=== PATIENT | male | born 1945 | race Caucasian/White ===

== ENCOUNTER 2017-07-19 22:43 | Emergency (ER) | payer MEDICARE ==
[~2017-07-19] VITALS: Ht 175.3 cm; Wt 126.7 kg
[~2017-07-19 22:43] MED LIST: AMIT50TA3 PO; ASPI-1265 PO; ATOR10TA70 PO; CANA300T PO; CARV-50 PO; CLON0.2T PO; FLUT16SP2 NS; GLIM4TAB79 PO; LORA10TA7 PO; LOSA1TAB39 PO; METF500T PO; MULT-1074 PO; OMEG1CAP13 PO; POTA10TA19 PO; UBID200C18 PO; ZOLP10TA5 PO
[2017-07-19 22:53] VITALS: BP 155/85
[2017-07-19] MEDS ORDERED: HYDROcodone/acetaminophen 10/325mg tab PO ONE (23:40)
[2017-07-19] MEDS ORDERED: HYDR-3965 PO (23:48)
[2017-07-19] MEDS ORDERED: IBUP-1984 PO (23:48)
== END 2017-07-19 23:56 | disposition home or self-care (01) ==
LOC: ER 22:44
DX: M25.571 Pain in right ankle and joints of right foot (principal); I10 Essential (primary) hypertension; E11.9 Type 2 diabetes mellitus without complications; Z90.49 Acquired absence of other specified parts of digestive tract; Z98.890 Other specified postprocedural states; Z79.82 Long term (current) use of aspirin; Z79.84 Long term (current) use of oral hypoglycemic drugs
CPT/HCPCS: 73610; 99284

== ENCOUNTER 2017-07-26 13:58 | Emergency (ER) | payer MEDICARE ==
[~2017-07-26] VITALS: Ht 177.8 cm; Wt 129.0 kg
[~2017-07-26 13:58] MED LIST changes: +HYDR-3965 PO; +IBUP-1984 PO
[2017-07-26 14:41] VITALS: BP 148/92
[2017-07-26] MEDS ORDERED: HYDR-3965 PO (16:41)
[2017-07-26] MEDS ORDERED: BUPIVAcaine/PF 2.5 mg/ml (0.25%) 30ml vial IJ ONE (17:00)
== END 2017-07-26 18:38 | disposition home or self-care (01) ==
LOC: ER 13:59
DX: S92.425A Nondisplaced fracture of distal phalanx of left great toe, initial encounter for closed fracture (principal); I10 Essential (primary) hypertension; E11.9 Type 2 diabetes mellitus without complications; Z88.2 Allergy status to sulfonamides; Z79.82 Long term (current) use of aspirin; Z79.899 Other long term (current) drug therapy; Z79.84 Long term (current) use of oral hypoglycemic drugs; Z90.49 Acquired absence of other specified parts of digestive tract; W22.8XXA Striking against or struck by other objects, initial encounter; Y93.89 Activity, other specified; Y92.89 Other specified places as the place of occurrence of the external cause; Y99.8 Other external cause status
CPT/HCPCS: 11740; 73660; 99284; J3490

== ENCOUNTER 2017-08-04 09:41 | Outpatient (CLI) | payer MEDICARE | END 2017-08-04 10:46 | disposition home or self-care (01) | LOC: ORTHO 09:41 | PROVIDERS: ATTEND Nurse Practitioner Family | DX: S92.425A Nondisplaced fracture of distal phalanx of left great toe, initial encounter for closed fracture (principal); Z88.2 Allergy status to sulfonamides; X58.XXXA Exposure to other specified factors, initial encounter; Y93.89 Activity, other specified; Y92.89 Other specified places as the place of occurrence of the external cause; Y99.8 Other external cause status | CPT/HCPCS: A6449 ==

== ENCOUNTER 2017-08-25 09:51 | Outpatient (CLI) | payer MEDICARE ==
[~2017-08-25 09:51] MED LIST changes: -IBUP-1984 PO
[2017-08-25 09:56] VITALS: BP 135/72
== END 2017-08-25 10:49 | disposition home or self-care (01) ==
LOC: ORTHO 09:51
PROVIDERS: ATTEND Nurse Practitioner Family
DX: S92.425D Nondisplaced fracture of distal phalanx of left great toe, subsequent encounter for fracture with routine healing (principal); E11.9 Type 2 diabetes mellitus without complications; I10 Essential (primary) hypertension; Z88.2 Allergy status to sulfonamides; X58.XXXD Exposure to other specified factors, subsequent encounter
CPT/HCPCS: 73660; 99213

== ENCOUNTER 2017-09-15 10:03 | Outpatient (CLI) | payer MEDICARE ==
[~2017-09-15 10:03] MED LIST changes: -HYDR-3965 PO
[2017-09-15 10:34] VITALS: BP 135/78
== END 2017-09-15 11:03 | disposition home or self-care (01) ==
LOC: ORTHO 10:03
PROVIDERS: ATTEND Nurse Practitioner Family
DX: S92.425D Nondisplaced fracture of distal phalanx of left great toe, subsequent encounter for fracture with routine healing (principal); I10 Essential (primary) hypertension; E11.9 Type 2 diabetes mellitus without complications; Z88.2 Allergy status to sulfonamides; X58.XXXD Exposure to other specified factors, subsequent encounter
CPT/HCPCS: 73660

== ENCOUNTER 2018-11-22 10:38 | Emergency (ER) | payer MEDICARE, BC ==
[~2018-11-22] VITALS: Ht 175.3 cm; Wt 136.9 kg
[~2018-11-22 10:38] MED LIST changes: +GLIM4TAB4 PO; -GLIM4TAB79 PO
[2018-11-22 11:18] LABS: CLARITY,URINE CLEAR (Clear); COLOR,URINE YELLOW (Yellow); GLUCOSE, URINE NEGATIVE (Neg); KETONES,URINE NEGATIVE (Neg); LEUKOCYTE ESTERASE ,URINE TRACE (Neg); NITRITES, URINE NEGATIVE (Neg); OCCULT BLOOD,URINE NEGATIVE (Neg); PH,URINE 6.5 (4.8-8.0); PROTEIN,URINE NEGATIVE (Neg); UROBILINOGEN,URINE 0.2 E.U/dL (0.2-1.0)
[2018-11-22 11:19] LABS: UA COLLECTION TYPE CLN CATCH MIDSTREAM
[2018-11-22 11:26] LABS: BACTERIA,URINE FEW /HPF (Neg); MUCUS STRANDS NONE SEEN /LPF (Neg); RBC,URINE NONE SEEN /HPF (0-2); SQUAMOUS EPITHELIAL CELL,UR FEW /LPF (FEW); WBC,URINE 0-4 /HPF (0-4)
[2018-11-22 12:39] LABS: BASOPHILS # (AUTO) 0.1 X10'3 (0-0.2); EOSINOPHILS # (AUTO) 0.2 X10'3 (0-0.9); EOSINOPHILS % (AUTO) 3.5 % (0-6); HEMOGLOBIN 12.3 g/dl (14.0-17.9); LYMPHOCYTES % (AUTO) 18.4 % (21-51); MEAN CORPUSCULAR HEMOGLOBIN 27.7 PG (27.0-31.0); MEAN CORPUSCULAR HGB CONC 32.2 g/dL (33.0-36.5); MEAN CORPUSCULAR VOLUME 86.1 FL (78-98); MEAN PLATELET VOLUME 8.9 FL (7.4-10.4); MONOCYTES # (AUTO) 0.5 X10'3 (0-0.9); MONOCYTES % (AUTO) 10.3 % (2-12); NEUTROPHILS # (AUTO) 3.5 X10'3 (1.8-7.7); NEUTROPHILS % (AUTO) 66.8 % (42-75); PLATELET COUNT 155 X10'3 (140-440); RED BLOOD COUNT 4.42 X10'6 (4.70-6.10); RED CELL DISTRIBUTION WIDTH 15.7 % (11.5-14.5); WHITE BLOOD COUNT 5.3 X10'3 (4.5-11.0)
[2018-11-22] MEDS ORDERED: furosemide 10 MG/1 ML 10ml inj IV ONE (12:55)
[2018-11-22 13:00] LABS: ALANINE AMINOTRANSFERASE 28 U/L (12-78); ALBUMIN 3.6 G/DL (3.4-5.0); ALKALINE PHOSPHATASE 70 IU/L (46-116); ANION GAP 6 (8-16); ASPARTATE AMINO TRANSFERASE 24 U/L (10-37); BILIRUBIN,TOTAL 0.8 MG/DL (0.1-1.0); BLOOD UREA NITROGEN 13 MG/DL (7-18); BUN/CREATININE RATIO 13.4 (5.4-32.0); CALCIUM 9.2 MG/DL (8.5-10.1); CHLORIDE 105 MMOL/L (99-107); CREATININE 0.97 MG/DL (0.60-1.10); GLUCOSE 144 MG/DL (70-104); POTASSIUM 4.2 MMOL/L (3.5-5.1); SODIUM 142 MMOL/L (135-145); TOTAL CARBON DIOXIDE 30.6 MMOL/L (24-32); TOTAL PROTEIN 7.1 G/DL (6.4-8.2); eGFR 76 ML/MIN
[2018-11-22] MEDS ORDERED: potassium chloride 10mEq CAPSULE.SA PO ONE (13:05)
[2018-11-22] MEDS ORDERED: potassium Cl 20 mEq SR tablet PO ONE (13:10)
[2018-11-22 13:44] VITALS: BP 124/62
== END 2018-11-22 13:46 | disposition home or self-care (01) ==
LOC: ER 10:39
DX: N50.89 Other specified disorders of the male genital organs (principal); R60.0 Localized edema; I48.91 Unspecified atrial fibrillation; I10 Essential (primary) hypertension; E11.9 Type 2 diabetes mellitus without complications; Z90.49 Acquired absence of other specified parts of digestive tract; Z98.890 Other specified postprocedural states; Z88.2 Allergy status to sulfonamides; Z79.82 Long term (current) use of aspirin; Z79.84 Long term (current) use of oral hypoglycemic drugs; Z79.899 Other long term (current) drug therapy
CPT/HCPCS: 36415; 80053; 81001; 83880; 85025; 87088; 93005; 96374; 99284; J1940

== ENCOUNTER 2019-02-09 17:57 | Inpatient (IN) | payer MEDICARE, BC ==
[~2019-02-09] VITALS: Ht 175.3 cm; Wt 135.5 kg
[2019-02-09] MEDS ORDERED: furosemide 10 MG/1 ML 10ml inj IV ONE (18:35)
--- NOTE | 2019-02-09 18:39 | NUR ---
lab called to report that they had run a troponin as it was sent for "cardiac" pt and the troponin is less than 0.04. An order was also placed for 1xtrop.
[2019-02-09 18:42] LABS: TROPONIN I < 0.04 NG/ML (0.0-0.05)
--- NOTE | 2019-02-09 18:44 | NUR ---
SPOKE WITH JORDANA REDDY REGARDING PT BLOOD PRESSURE BEING 106/50 BEFORE ADMINISTRATION OF LASIX. BARRY BELIEVES PT IS THIRD-SPACING AND WANTS THE FULL 60MG DOSE OF LASIX TO BE GIVEN TOGETHER AT ONE TIME.
[2019-02-09 18:51] LABS: BASOPHILS # (AUTO) 0.1 X10'3 (0-0.2); EOSINOPHILS # (AUTO) 0.2 X10'3 (0-0.9); EOSINOPHILS % (AUTO) 3.9 % (0-6); HEMATOCRIT 33.4 % (42.0-52.0); HEMOGLOBIN 11.1 g/dl (14.0-17.9); LYMPHOCYTES # (AUTO) 1.1 X10'3 (1.1-4.8); LYMPHOCYTES % (AUTO) 21.5 % (21-51); MEAN CORPUSCULAR HEMOGLOBIN 28.6 PG (27.0-31.0); MEAN CORPUSCULAR HGB CONC 33.1 g/dL (33.0-36.5); MEAN CORPUSCULAR VOLUME 86.3 FL (78-98); MEAN PLATELET VOLUME 8.7 FL (7.4-10.4); MONOCYTES # (AUTO) 0.6 X10'3 (0-0.9); MONOCYTES % (AUTO) 11.7 % (2-12); NEUTROPHILS # (AUTO) 3.3 X10'3 (1.8-7.7); NEUTROPHILS % (AUTO) 61.9 % (42-75); PLATELET COUNT 172 X10'3 (140-440); RED BLOOD COUNT 3.87 X10'6 (4.70-6.10); RED CELL DISTRIBUTION WIDTH 16.7 % (11.5-14.5); WHITE BLOOD COUNT 5.3 X10'3 (4.5-11.0)
[2019-02-09 18:59] LABS: ALANINE AMINOTRANSFERASE 25 U/L (12-78); ALBUMIN 3.4 G/DL (3.4-5.0); ALBUMIN/GLOBULIN RATIO 0.9 (1.1-1.5); ALKALINE PHOSPHATASE 109 IU/L (46-116); ANION GAP 8 (8-16); ASPARTATE AMINO TRANSFERASE 32 U/L (10-37); BILIRUBIN,TOTAL 0.6 MG/DL (0.1-1.0); BLOOD UREA NITROGEN 19 MG/DL (7-18); BUN/CREATININE RATIO 17.4 (5.4-32.0); CALCIUM 8.7 MG/DL (8.5-10.1); CHLORIDE 103 MMOL/L (99-107); CREATININE 1.09 MG/DL (0.60-1.10); GLUCOSE 93 MG/DL (70-104); POTASSIUM 3.1 MMOL/L (3.5-5.1); SODIUM 142 MMOL/L (135-145); TOTAL CARBON DIOXIDE 31.3 MMOL/L (24-32); TOTAL PROTEIN 7.1 G/DL (6.4-8.2); eGFR 66 ML/MIN
--- NOTE | 2019-02-09 19:20 | NUR ---
INFORMED JORDANA REDDY OF K LEVEL3.1. NO NEW ORDERS AT THIS TIME.
[2019-02-09] MEDS ORDERED: potassium Cl 20 mEq SR tablet PO STA ×2 (19:34→23:12)
[2019-02-09] MEDS ORDERED: FURO-149 PO (19:46)
[2019-02-09] MEDS ORDERED: APIX5TAB3 PO (19:50)
[2019-02-09] MEDS ORDERED: GABA-532 PO (19:50)
[2019-02-09] MEDS ORDERED: MONT10TA24 PO (19:50)
[2019-02-09] MEDS ORDERED: acetaminophen 325mg tablet PO PRN (20:00)
[2019-02-09] MEDS ORDERED: morphine 2 MG/ML inj. syringe IV PRN ×2 (20:00)
[2019-02-09] MEDS ORDERED: magnesium hydroxide 30ml (MOM) UD suspension PO PRN (20:00)
[2019-02-09] MEDS ORDERED: mag hydrox/Alum hydrox/simeth 30ml oral suspension PO PRN (20:00)
[2019-02-09] MEDS ORDERED: ondansetron/PF 4mg/2ml inj IV PRN (20:00)
[2019-02-09] MEDS ORDERED: MESSAGE TO PHARMACY PO ONE (20:05)
[2019-02-09] MEDS ORDERED: dextrose 50%-water 50ml dispensing syringe IV PRN ×2 (20:05)
[2019-02-09] MEDS ORDERED: insulin Lispro (HumaLOG) vial - multi-dose SQ SCH (20:05)
[2019-02-09] MEDS ORDERED: glucagon, human recombinant 1mg kit SUBCUT PRN (20:05)
[2019-02-09] MEDS ORDERED: dextrose ORAL solution 15 GM/59 ML bottle PO PRN ×2 (20:05)
[2019-02-09 20:25] LABS: HEMOGLOBIN A1C 7.8 % (4.5-6.2)
[2019-02-09] MEDS: insulin glargine (Lantus) pen - multi-dose SQ SCH (21:00)
--- NOTE | 2019-02-09 21:06 | NUR ---
recieved pt report from Mayra RICHARDSON. ED. pt came in with chief complaint of continuing worse SOB, pt BNP is 4473, CHF, with bilat lower extremity and scrotal swelling. pt reports taking 60mg lasix BID previous to admit. will await pt arival to the unit
--- NOTE | 2019-02-09 21:58 | NUR ---
NOTIFIED PAGER ID: [phone] MESSAGE: Anup Aguila, [id number]- K was 3.1, no K replacement protocol ordered, pt received 60 mg Lasix and is about to get another 80mg per orders. can we front load with some extra K along with replacement? [facility] [id number]
[2019-02-09 22:00] VITALS: BP 128/60
[2019-02-09] MEDS: apixaban 5mg tablet PO SCH (22:27)
[2019-02-09] MEDS: gabapentin 300mg capsule PO SCH (22:27)
[2019-02-09] MEDS: zolpidem 5mg tablet PO SCH (22:29)
[2019-02-09] MEDS: carVEDilol 12.5mg tablet PO SCH (22:29)
[2019-02-09] MEDS: furosemide 10 MG/1 ML 10ml inj IV SCH (22:35)
[2019-02-09] MEDS: cloNIDine 0.1 mg tablet PO SCH (22:37)
[2019-02-09 23:00] VITALS: BP 128/67
[2019-02-09] MEDS ORDERED: potassium CL 10mEq/100ml bag 100 ML IV PRN (23:15)
[2019-02-09] MEDS ORDERED: potassium Cl 20 mEq SR tablet PO PRN (23:15)
--- NOTE | 2019-02-10 00:47 | NUR ---
ED took BS just prior to transfer, per LUIS RICHARDSON hand off report Addendum: 02/10/19 at 0048 by Lexx Coto RN Amended: Links added.
[2019-02-10 03:00] VITALS: BP 121/66
[2019-02-10 06:06] LABS: BASOPHILS % (AUTO) 0.7 % (0-1); EOSINOPHILS # (AUTO) 0.2 X10'3 (0-0.9); EOSINOPHILS % (AUTO) 3.6 % (0-6); HEMATOCRIT 30.9 % (42.0-52.0); HEMOGLOBIN 10.2 g/dl (14.0-17.9); LYMPHOCYTES % (AUTO) 18.9 % (21-51); MEAN CORPUSCULAR HEMOGLOBIN 28.1 PG (27.0-31.0); MEAN CORPUSCULAR HGB CONC 33.2 g/dL (33.0-36.5); MEAN CORPUSCULAR VOLUME 84.8 FL (78-98); MEAN PLATELET VOLUME 8.5 FL (7.4-10.4); MONOCYTES # (AUTO) 0.6 X10'3 (0-0.9); MONOCYTES % (AUTO) 11.1 % (2-12); NEUTROPHILS # (AUTO) 3.4 X10'3 (1.8-7.7); NEUTROPHILS % (AUTO) 65.7 % (42-75); PLATELET COUNT 153 X10'3 (140-440); RED BLOOD COUNT 3.64 X10'6 (4.70-6.10); RED CELL DISTRIBUTION WIDTH 16.6 % (11.5-14.5); WHITE BLOOD COUNT 5.2 X10'3 (4.5-11.0)
--- NOTE | 2019-02-10 06:14 | NUR ---
Patient in room PCU 3013. I have received report from DEBRA Mcrae and had the opportunity to ask questions and assume patient care.
--- NOTE | 2019-02-10 06:34 | NUR ---
Problems reprioritized. Patient report given, questions answered & plan of care reviewed with Heena RICHARDSON.
[2019-02-10 06:42] LABS: ANION GAP 7 (8-16); BLOOD UREA NITROGEN 17 MG/DL (7-18); BUN/CREATININE RATIO 15.7 (5.4-32.0); CALCIUM 8.3 MG/DL (8.5-10.1); CHLORIDE 105 MMOL/L (99-107); CREATININE 1.08 MG/DL (0.60-1.10); GLUCOSE 140 MG/DL (70-104); MAGNESIUM 2.2 MG/DL (1.5-2.4); POTASSIUM 3.1 MMOL/L (3.5-5.1); SODIUM 142 MMOL/L (135-145); TOTAL CARBON DIOXIDE 30.3 MMOL/L (24-32); eGFR 67 ML/MIN
[2019-02-10] MEDS ORDERED: potassium chloride 10mEq ER tablet PO SCH (08:00)
[2019-02-10] MEDS: (Ubidecarenone (Co Q-10) 1 CAP) PO SCH (08:00)
[2019-02-10] MEDS ORDERED: atorvastatin 10mg tablet PO SCH (08:00)
[2019-02-10] MEDS: furosemide 10 MG/1 ML 10ml inj IV SCH ×2 (08:31→21:46)
[2019-02-10] MEDS: HYDROchlorothiazide 25mg tablet PO SCH (08:31)
[2019-02-10] MEDS: cloNIDine 0.1 mg tablet PO SCH ×2 (08:31→21:36)
[2019-02-10] MEDS: losartan 50mg tablet PO SCH (08:34)
[2019-02-10] MEDS: apixaban 5mg tablet PO SCH ×2 (08:34→21:36)
[2019-02-10] MEDS: montelukast 10mg tablet PO SCH (08:35)
[2019-02-10] MEDS: loratadine 10mg tablet PO SCH (08:35)
[2019-02-10] MEDS: gabapentin 300mg capsule PO SCH ×3 (08:35→21:36)
[2019-02-10] MEDS: carVEDilol 12.5mg tablet PO SCH ×2 (08:35→21:36)
[2019-02-10] MEDS: OMEGA-3/DHA/EPA/FISH OIL 1 EACH CAPSULE.DR PO SCH (09:15)
[2019-02-10] MEDS ORDERED: pneumococcal 23-VAL P-sac vacc 25 mcg/0.5ml vial IMVAC ONE (10:00)
[2019-02-10 11:00] VITALS: BP 106/62
[2019-02-10] MEDS ORDERED: atorvastatin 20mg tablet PO SCH (14:15)
[2019-02-10] MEDS ORDERED: potassium Cl 20 mEq SR tablet PO ONE (14:20)
[2019-02-10] MEDS ORDERED: FLUT1BLS13 PO (14:26)
[2019-02-10] MEDS ORDERED: AMLO10TA13 PO (14:26)
--- NOTE | 2019-02-10 14:55 | NUR ---
DM consult: Pt with A1c 7.8 seen at bedside with SO present. So reports she does the cooking and states patient has decreased his sugar intake to decrease A1c from greater than 8. Pt/SO with no questions at this time. Written DM ed with referral to outpatient DM class and RD contact information provided. Pt endorses a low appetite however documented with 100% PO intake on heart healthy CHO controlled diet. Pt denies food preferences, food allergies, difficulty chewing/swallowing, or constipation/diarrhea. Pt reports he takes an antidiarrheal QD and states LBM was last night. Will continue to follow. Addendum: 02/10/19 at [address] Amended: Links added.
[2019-02-10 15:00] VITALS: BP 105/58
--- NOTE | 2019-02-10 18:02 | NUR ---
Problems reprioritized. Patient report given, questions answered & plan of care reviewed with DEBRA Gold.
--- NOTE | 2019-02-10 18:08 | NUR ---
Patient in room PCU 3013. I have received report from Heena RICHARDSON and had the opportunity to ask questions and assume patient care.
[2019-02-10 19:03] VITALS: BP 136/73
[2019-02-10] MEDS: insulin glargine (Lantus) pen - multi-dose SQ SCH (21:00)
[2019-02-10 21:23] VITALS: BP 120/65
[2019-02-10] MEDS: potassium Cl 20 mEq SR tablet PO SCH (21:36)
[2019-02-10] MEDS: zolpidem 5mg tablet PO SCH (21:36)
[2019-02-11 02:00] VITALS: BP 123/61
[2019-02-11 05:18] LABS: BASOPHILS % (AUTO) 0.7 % (0-1); EOSINOPHILS # (AUTO) 0.2 X10'3 (0-0.9); EOSINOPHILS % (AUTO) 3.6 % (0-6); HEMATOCRIT 34.6 % (42.0-52.0); HEMOGLOBIN 11.6 g/dl (14.0-17.9); LYMPHOCYTES % (AUTO) 15.6 % (21-51); MEAN CORPUSCULAR HEMOGLOBIN 28.4 PG (27.0-31.0); MEAN CORPUSCULAR HGB CONC 33.3 g/dL (33.0-36.5); MEAN CORPUSCULAR VOLUME 85.2 FL (78-98); MEAN PLATELET VOLUME 8.6 FL (7.4-10.4); MONOCYTES # (AUTO) 0.7 X10'3 (0-0.9); MONOCYTES % (AUTO) 10.9 % (2-12); NEUTROPHILS # (AUTO) 4.2 X10'3 (1.8-7.7); NEUTROPHILS % (AUTO) 69.2 % (42-75); PLATELET COUNT 155 X10'3 (140-440); RED BLOOD COUNT 4.06 X10'6 (4.70-6.10); RED CELL DISTRIBUTION WIDTH 16.8 % (11.5-14.5); WHITE BLOOD COUNT 6.1 X10'3 (4.5-11.0)
[2019-02-11 05:28] LABS: ANION GAP 8 (8-16); BLOOD UREA NITROGEN 16 MG/DL (7-18); BUN/CREATININE RATIO 15.1 (5.4-32.0); CALCIUM 8.9 MG/DL (8.5-10.1); CHLORIDE 104 MMOL/L (99-107); CREATININE 1.06 MG/DL (0.60-1.10); GLUCOSE 143 MG/DL (70-104); MAGNESIUM 2.2 MG/DL (1.5-2.4); POTASSIUM 3.1 MMOL/L (3.5-5.1); SODIUM 142 MMOL/L (135-145); TOTAL CARBON DIOXIDE 29.9 MMOL/L (24-32); eGFR 68 ML/MIN
[2019-02-11 05:29] LABS: ALBUMIN 3.3 G/DL (3.4-5.0)
--- NOTE | 2019-02-11 06:05 | NUR ---
Patient in room PCU 3013. I have received report from Renan RICHARDSON and had the opportunity to ask questions and assume patient care.
[2019-02-11] MEDS: potassium Cl 20 mEq SR tablet PO PRN ×2 (06:29→11:26)
--- NOTE | 2019-02-11 06:29 | NUR ---
Problems reprioritized. Patient report given, questions answered & plan of care reviewed with Higinio Rn, bedside report completed. K+ protocol. 1st dose replaced with 20 mEq PO .
[2019-02-11 06:54] VITALS: BP 126/68
[2019-02-11] MEDS: montelukast 10mg tablet PO SCH (07:18)
[2019-02-11] MEDS: furosemide 10 MG/1 ML 10ml inj IV SCH ×2 (07:18→20:28)
[2019-02-11] MEDS: HYDROchlorothiazide 25mg tablet PO SCH (07:18)
[2019-02-11] MEDS: cloNIDine 0.1 mg tablet PO SCH ×2 (07:19→20:30)
[2019-02-11] MEDS: losartan 50mg tablet PO SCH (07:19)
[2019-02-11] MEDS: loratadine 10mg tablet PO SCH (07:20)
[2019-02-11] MEDS: atorvastatin 20mg tablet PO SCH (07:20)
[2019-02-11] MEDS: gabapentin 300mg capsule PO SCH ×3 (07:20→20:28)
[2019-02-11] MEDS: potassium Cl 20 mEq SR tablet PO SCH ×3 (07:20→20:29)
[2019-02-11] MEDS: apixaban 5mg tablet PO SCH ×2 (07:20→20:30)
[2019-02-11] MEDS: carVEDilol 12.5mg tablet PO SCH ×2 (07:20→20:00)
[2019-02-11] MEDS: OMEGA-3/DHA/EPA/FISH OIL 1 EACH CAPSULE.DR PO SCH (07:21)
[2019-02-11] MEDS: (Ubidecarenone (Co Q-10) 1 CAP) PO SCH (08:00)
[2019-02-11 11:00] VITALS: BP 102/59
[2019-02-11 15:00] VITALS: BP 139/69
[2019-02-11 18:00] VITALS: BP 121/57
--- NOTE | 2019-02-11 18:05 | NUR ---
Patient in room PCU 3013B. I have received report from DEBRA Sylvester and had the opportunity to ask questions and assume patient care. Patient is A & O X4, denies CP, dizziness, n/v, and rated pain 0/10.
--- NOTE | 2019-02-11 18:05 | NUR ---
Problems reprioritized. Patient report given, questions answered & plan of care reviewed with Edwin RICHARDSON.
[2019-02-11] MEDS: zolpidem 5mg tablet PO SCH (20:30)
[2019-02-11] MEDS: insulin glargine (Lantus) pen - multi-dose SQ SCH (21:00)
[2019-02-11 22:00] VITALS: BP 113/63
[2019-02-12 02:00] VITALS: BP 112/59
[2019-02-12] MEDS: potassium Cl 20 mEq SR tablet PO PRN (04:36)
--- NOTE | 2019-02-12 06:05 | NUR ---
Patient in room PCU 3013. I have received report from Edwin RICHARDSON and had the opportunity to ask questions and assume patient care.
[2019-02-12 06:26] LABS: ALBUMIN 3.3 G/DL (3.4-5.0); ANION GAP 6 (8-16); BLOOD UREA NITROGEN 19 MG/DL (7-18); BUN/CREATININE RATIO 16.2 (5.4-32.0); CALCIUM 8.5 MG/DL (8.5-10.1); CHLORIDE 103 MMOL/L (99-107); CREATININE 1.17 MG/DL (0.60-1.10); GLUCOSE 144 MG/DL (70-104); POTASSIUM 3.8 MMOL/L (3.5-5.1); SODIUM 142 MMOL/L (135-145); TOTAL CARBON DIOXIDE 33.2 MMOL/L (24-32); eGFR 61 ML/MIN
--- NOTE | 2019-02-12 06:26 | NUR ---
Problems reprioritized. Patient report given, questions answered & plan of care reviewed with DEBRA Sylvester. Pt stable at shift change
[2019-02-12 06:37] LABS: BASOPHILS # (AUTO) 0.1 X10'3 (0-0.2); BASOPHILS % (AUTO) 0.7 % (0-1); EOSINOPHILS # (AUTO) 0.2 X10'3 (0-0.9); EOSINOPHILS % (AUTO) 2.7 % (0-6); HEMOGLOBIN 11.3 g/dl (14.0-17.9); LYMPHOCYTES # (AUTO) 1.3 X10'3 (1.1-4.8); LYMPHOCYTES % (AUTO) 16.3 % (21-51); MEAN CORPUSCULAR HEMOGLOBIN 28.4 PG (27.0-31.0); MEAN CORPUSCULAR HGB CONC 33.2 g/dL (33.0-36.5); MEAN CORPUSCULAR VOLUME 85.5 FL (78-98); MEAN PLATELET VOLUME 8.9 FL (7.4-10.4); MONOCYTES # (AUTO) 0.8 X10'3 (0-0.9); NEUTROPHILS # (AUTO) 5.5 X10'3 (1.8-7.7); NEUTROPHILS % (AUTO) 70.3 % (42-75); PLATELET COUNT 190 X10'3 (140-440); RED BLOOD COUNT 3.98 X10'6 (4.70-6.10); RED CELL DISTRIBUTION WIDTH 16.6 % (11.5-14.5); WHITE BLOOD COUNT 7.9 X10'3 (4.5-11.0)
[2019-02-12] MEDS: furosemide 10 MG/1 ML 10ml inj IV SCH (07:21)
[2019-02-12] MEDS: cloNIDine 0.1 mg tablet PO SCH (07:22)
[2019-02-12] MEDS: OMEGA-3/DHA/EPA/FISH OIL 1 EACH CAPSULE.DR PO SCH (07:22)
[2019-02-12] MEDS: potassium Cl 20 mEq SR tablet PO SCH ×2 (07:22→13:14)
[2019-02-12] MEDS: gabapentin 300mg capsule PO SCH ×2 (07:22→13:14)
[2019-02-12] MEDS: atorvastatin 20mg tablet PO SCH (07:22)
[2019-02-12] MEDS: losartan 50mg tablet PO SCH (07:22)
[2019-02-12] MEDS: loratadine 10mg tablet PO SCH (07:23)
[2019-02-12] MEDS: montelukast 10mg tablet PO SCH (07:23)
[2019-02-12] MEDS: carVEDilol 12.5mg tablet PO SCH (07:23)
[2019-02-12] MEDS: HYDROchlorothiazide 25mg tablet PO SCH (07:23)
[2019-02-12] MEDS: apixaban 5mg tablet PO SCH (07:35)
--- NOTE | 2019-02-12 09:57 | NUR ---
PAGER ID: [phone] MESSAGE: Re: Anup Dailyley room: 3013B. Pt wants to keep bailey cath in place while diuresing and remove after transfer to [facility]. Is that okay? -Higinio [facility] #[id number] Dr. Langston paged concerning Pt wanting to keep bailey
[2019-02-12 11:00] VITALS: BP 126/57
--- NOTE | 2019-02-12 15:55 | NUR ---
Pt transfered to [facility]. IV removed, caula intact. Tele-box removed and returned to tele-tech. Worrell cath. left in place for diuresing and pt's wish. Report called to Mary Jane RICHARDSON at [facility]. Updated Mary Jane RICHARDSON about Pt's diagnosis and plan of care. Pt's belongings gathered and sent with Pt. Pt wheeled down to lobby by denisse smith in wheelchair. Pt left for [facility] in [facility] with denisse smith.
== END 2019-02-12 15:40 | DRG 291 ==
LOC: ER 17:57 → ED HOLD 19:57 → PCU 3S 22:00
PROVIDERS: ADMIT Internal Medicine; ATTEND Internal Medicine
PROC: 3E0234Z Introduction of Serum, Toxoid and Vaccine into Muscle, Percutaneous Approach (ICD-10-PCS; principal; 2019-02-10)
DX: I11.0 Hypertensive heart disease with heart failure (principal); J96.01 Acute respiratory failure with hypoxia; Z68.41 Body mass index [BMI] 40.0-44.9, adult; E11.40 Type 2 diabetes mellitus with diabetic neuropathy, unspecified; E87.6 Hypokalemia; K76.9 Liver disease, unspecified; I50.33 Acute on chronic diastolic (congestive) heart failure; G47.30 Sleep apnea, unspecified; I49.5 Sick sinus syndrome; E66.01 Morbid (severe) obesity due to excess calories; E78.5 Hyperlipidemia, unspecified; G47.00 Insomnia, unspecified; I48.0 Paroxysmal atrial fibrillation; N50.89 Other specified disorders of the male genital organs; Z79.01 Long term (current) use of anticoagulants; Z79.899 Other long term (current) drug therapy; Z83.3 Family history of diabetes mellitus; Z87.891 Personal history of nicotine dependence; Z95.0 Presence of cardiac pacemaker; Z79.84 Long term (current) use of oral hypoglycemic drugs; Z23 Encounter for immunization; Z88.2 Allergy status to sulfonamides; Z82.49 Family history of ischemic heart disease and other diseases of the circulatory system; Z82.41 Family history of sudden cardiac death
CPT/HCPCS: 36415; 71045; 80048; 80053; 82948; 83036; 83735; 83880; 84484; 85025; 85610; 87081; 90732; 93005; 93306; 96374; 99285; G0378; J1815; J1940

== ENCOUNTER 2019-08-22 21:37 | Emergency (ER) | payer MEDICARE, BC ==
[~2019-08-22] VITALS: Ht 208.3 cm; Wt 107.2 kg
[~2019-08-22 21:37] MED LIST changes: -AMIT50TA3 PO; +AMLO10TA13 PO; +APIX5TAB3 PO; -ASPI-1265 PO; -CANA300T PO; +FLUT1BLS13 PO; +FURO-149 PO; +GABA-532 PO; -GLIM4TAB4 PO; +MONT10TA26 PO
[2019-08-22] MEDS ORDERED: proparacaine 0.5% ophthalmic drops 15ml RIGHTEYE ONE (22:10)
--- NOTE | 2019-08-22 22:22 | NUR ---
Patient to CT w/o problem.
[2019-08-22] MEDS ORDERED: ERYT1OIN6 RIGHTEYE (22:59)
[2019-08-22 23:20] VITALS: BP 151/79
== END 2019-08-22 23:26 | disposition home or self-care (01) ==
LOC: ER 21:38
DX: S05.01XA Injury of conjunctiva and corneal abrasion without foreign body, right eye, initial encounter (principal); S09.90XA Unspecified injury of head, initial encounter; H11.31 Conjunctival hemorrhage, right eye; I48.91 Unspecified atrial fibrillation; I10 Essential (primary) hypertension; E11.9 Type 2 diabetes mellitus without complications; Z90.49 Acquired absence of other specified parts of digestive tract; Z95.0 Presence of cardiac pacemaker; Z98.890 Other specified postprocedural states; Z88.2 Allergy status to sulfonamides; Z79.01 Long term (current) use of anticoagulants; Z79.899 Other long term (current) drug therapy; W22.8XXA Striking against or struck by other objects, initial encounter; Y93.89 Activity, other specified; Y92.89 Other specified places as the place of occurrence of the external cause; Y99.8 Other external cause status
CPT/HCPCS: 70450; 99284

== ENCOUNTER → 2022-06-13 | Emergency (ER) | payer MEDICARE, BC ==
[~2022-06-13] VITALS: Ht 175.3 cm; Wt 100.9 kg
[~2022-06-13] MED LIST changes: +GABA-530 PO; +MONT-40 PO; -MONT10TA26 PO; +OMEG-5 PO; -OMEG1CAP13 PO; +POTA-192 PO; -POTA10TA19 PO
[2022-06-13 11:11] VITALS: BP 124/68
== END | disposition home or self-care (01) ==
LOC: ER 10:25
DX: S81.802A Unspecified open wound, left lower leg, initial encounter (principal); G62.89 Other specified polyneuropathies; R60.0 Localized edema; I11.0 Hypertensive heart disease with heart failure; E11.9 Type 2 diabetes mellitus without complications; Z88.2 Allergy status to sulfonamides; Z79.899 Other long term (current) drug therapy; Z79.1 Long term (current) use of non-steroidal anti-inflammatories (NSAID); Z79.2 Long term (current) use of antibiotics; X58.XXXA Exposure to other specified factors, initial encounter; Y93.89 Activity, other specified; Y92.89 Other specified places as the place of occurrence of the external cause; Y99.8 Other external cause status
CPT/HCPCS: 99284; A6258; A6446

== ENCOUNTER 2022-08-11 10:42 | Outpatient (CLI) | payer MEDICARE, BC | END 2022-08-11 23:59 | disposition home or self-care (01) | LOC: CARD DIAG 10:42 | PROVIDERS: ATTEND Internal Medicine Cardiovascular Disease | DX: I08.8 Other rheumatic multiple valve diseases (principal); R06.02 Shortness of breath | CPT/HCPCS: 93306 ==

== ENCOUNTER 2022-10-25 12:20 | Emergency (ER) | payer MEDICARE, BC ==
[~2022-10-25] VITALS: Ht 177.8 cm; Wt 89.0 kg
[2022-10-25 12:27] VITALS: BP 143/76; PULSE 66; RESP 18; TEMP 97.7; O2SAT 100
== END 2022-10-25 13:56 | disposition home or self-care (01) ==
LOC: ER 12:21
DX: M79.671 Pain in right foot (principal); R60.0 Localized edema; I48.91 Unspecified atrial fibrillation; I10 Essential (primary) hypertension; E11.9 Type 2 diabetes mellitus without complications; Z90.49 Acquired absence of other specified parts of digestive tract; Z95.0 Presence of cardiac pacemaker; Z88.8 Allergy status to other drugs, medicaments and biological substances; Z88.2 Allergy status to sulfonamides; Z79.899 Other long term (current) drug therapy
CPT/HCPCS: 73630; 99283